=== PATIENT | male | born 1960 | race Caucasian/White ===

== ENCOUNTER → 2018-12-06 | Outpatient (CLI) | payer SELFPAY ==
[~2018-12-06] VITALS: Ht 175.3 cm; Wt 78.1 kg
[~2018-12-06] MED LIST: ASPIRIN E.C. 8181 MG PO; KAPSPARGO SPRIN50 MG PO
[2018-12-06 10:51] VITALS: BP 126/89; PULSE 62
[2018-12-06 12:31] VITALS: BP 132/64; PULSE 98
[2018-12-06 12:33] VITALS: BP 131/71; PULSE 87
[2018-12-06 12:35] VITALS: BP 131/76; PULSE 85
== END ==
LOC: COL.CARD 11-27 10:45
DX: I20.8 Other forms of angina pectoris (principal)
CPT/HCPCS: A9500; J2785